=== PATIENT | female | born 1945 | race Caucasian/White ===

== ENCOUNTER → 2017-09-17 | Outpatient (CLI) | payer OTHER, MEDICARE ==
[~2017-09-17] MED LIST: CITALOPRAM HBR20 MG PO; CYMBALTA30 MG PO; LEVOTHYROXINE25 MCG PO; OMEPRAZOLE40 MG PO; SIMVASTATIN20 MG PO; ULTRAM 50MG50 MG PO
--- NOTE | 2017-09-18 18:04 | Diagnostic Imaging Report ---
History: Shooting pain both legs . Comparison studies: None Technique: Sagittal and axial T2 , sagittal T1 and IR, axial spin density oblique. Intravenous contrast: None Findings: Alignment: Grade I anterolisthesis of L4-5 . No scoliosis . Soft tissues: No T2 hyperintense inflammatory changes . Paraspinal muscles: No signal abnormalities. Well-preserved. No atrophy . Lower thoracic cord: Normal in signal and morphology. The tip of the conus is at L1 . Cauda equina: No masses. No arachnoiditis. Vertebrae: Normal in height and signal intensity. No compression fractures, infection or neoplasm. Degenerative changes: Mild disc degeneration with loss of T2 signal from L4-S1. L1-L2: None. L2-L3: None. L3-L4: None. L4-L5: Diffuse disc bulge, severe facet hypertrophy and ligamentum flavum thickening results in moderate canal stenosis, moderate right and mild left foraminal narrowing . L5-S1: Diffuse disc bulge, moderate facet hypertrophy and ligamentum flavum thickening results in no canal stenosis or significant foraminal narrowing . IMPRESSION: 1. Moderate canal stenosis and moderate right foraminal narrowing at L4-5 secondary to severe facet hypertrophy, ligamentum flavum thickening, diffuse disc bulge and mild grade I anterolisthesis. Signed by: DR Rob June M.D. on 09/19/2017 11:30 AM
== END ==
LOC: MRI 08:42
PROVIDERS: ATTEND Specialist
DX: M47.816 Spondylosis without myelopathy or radiculopathy, lumbar region (principal); M43.16 Spondylolisthesis, lumbar region
CPT/HCPCS: 72148

== ENCOUNTER → 2018-04-24 | Outpatient (CLI) | payer OTHER, MEDICARE ==
--- NOTE | 2018-04-24 17:14 | Diagnostic Imaging Report ---
Examination: MRI BRAIN WITHOUT CONTRAST History: Anisocoria. Headaches. Nausea. Dizziness. Comparison studies: None Technique: Sagittal T2; axial DWI, FLAIR, GRE or SWI, T1, Coronal FLAIR. Intravenous contrast: None Findings: Scalp: No abnormal signal. No masses. Bone marrow: Normal in signal intensity. Brain volume: Adequate for age. No volume loss. Ventricles: Normal in size and configuration. No hydrocephalus. Extra-axial spaces: No abnormalities. Parenchyma: There are scattered punctate and patchy areas of T2/FLAIR hyperintensity in the periventricular and subcortical white matter, nonspecific. No masses, hemorrhage, or acute vascular insults. Suprasellar and sellar region: No abnormalities. Craniocervical junction: No abnormalities. The foramen magnum is patent. No Chiari malformations. Vessels: Normal flow-voids in the arteries and sinuses. Additional findings:Bilateral slitlike orbital lens. IMPRESSION: 1. No acute intracranial abnormalities. 2. Mild chronic microvascular ischemic change. Signed by: Dr. Osiris Mcleod M.D. on 04/24/2018 5:11 PM
== END ==
LOC: MRI 15:05
PROVIDERS: ATTEND Family Medicine
DX: H57.02 Anisocoria (principal); R51 Headache
CPT/HCPCS: 70551

== ENCOUNTER 2018-10-26 12:34 | Observation (INO) | payer MEDICARE ==
[~2018-10-26] VITALS: Ht 152.4 cm; Wt 69.0 kg
--- OUTSIDE RECORDS SUMMARY | 2018-10-26 12:38 | XMS REPORT ---
Author Author [facility] Address Unknown Phone Unavailable Care Team Providers Care Process Safety Engineer Name Role Phone ALBERT CALVO Unavailable Unavailable LUIS MIGUEL RUSS Unavailable Unavailable CHIVO ALVAREZ Unavailable Unavailable Problems This patient has no known problems. Allergies, Adverse Reactions, Alerts This patient has no known allergies or adverse reactions. Medications This patient has no known medications. Results Test Description Test Time Test Comments Text Results Atomic Results Result Comments MRI BRAIN WO 2018-04-24 17:09:00 [place] [address] Patient Name: FRANCISCO IVERSON MR #: [id number] : 1945 Age/Sex: 72/F Req #: [id number] Adm Physician: Ordered by: ALBERT CALVO MD Report #: [id number] Location: MRI Room/Bed: Procedure: [id number] MRI/MRI BRAIN WO Exam Date: Exam Time: REPORT STATUS: Signed Examination: MRI BRAIN WITHOUT CONTRAST History: Anisocoria. Headaches. Nausea. Dizziness. Comparison studies: None Technique: Sagittal T2; axial DWI, FLAIR, GRE or SWI, T1, Coronal FLAIR. Intravenous contrast: None Findings: Scalp: No abnormal signal. No masses. Bone marrow: Normal in signal intensity. Brain volume: Adequate for age. No volume loss. Ventricles: Normal in size and configuration. No hydrocephalus. Extra-axial spaces: No abnormalities. Parenchyma: There are scattered punctate and patchy areas of T2/FLAIR hyperintensity in the periventricular and subcortical white matter, nonspecific. No masses, hemorrhage, or acute vascular insults. Suprasellar and sellar region: No abnormalities. Craniocervical junction: No abnormalities. The foramen magnum is patent. No Chiari malformations. Vessels: Normal flow-voids in the arteries and sinuses. Additional findings:Bilateral slitlike orbital lens. IMPRESSION: 1. No acute intracranial abnormalities. 2. Mild chronic microvascular ischemic change. Signed by: Dr. Osiris Mcleod M.D. on 04/24/2018 5:11 PM Dictated By: OSIRIS TOMPKINS MD 10 Transcribed By: JOSE on 04/24/181710 COPY TO: ALBERT CALVO MD MRI SPINE LUMBAR WO [place] [address] Patient Name: FRANCISCO IVERSON MR #: [id number] : 1945 Age/Sex: 71/F Req #: [id number] Adm Physician: Ordered by: LUIS MIGUEL RUSS MD Report #: [id number] Location: MRI Room/Bed: Procedure: [id number] MRI/MRI SPINE LUMBAR WO Exam Date: 09/17/17 Exam Time: 0935 REPORT STATUS: Signed History: Shooting pain both legs . Comparison studies: None Technique: Sagittal and axial T2 , sagittal T1 and IR, axial spin density oblique. Intravenous contrast: None Findings: Alignment: Grade I anterolisthesis of L4-5 . No scoliosis . Soft tissues: No T2 hyperintense inflammatory changes . Paraspinal muscles: No signal abnormalities. Well- preserved. No atrophy . Lower thoracic cord: Normal in signal and morphology. The tip of the conus is at L1 . Cauda equina: No masses. No arachnoiditis. Vertebrae: Normal in height and signal intensity. No compression fractures, infection or neoplasm. Degenerative changes: Mild disc degeneration with loss of T2 signal from L4-S1. L1-L2: None. L2-L3: None. L3-L4: None. L4-L5: Diffuse disc bulge, severe facet hy pertrophy and ligamentum flavum thickening results in moderate canal stenosis, moderate right and mild left foraminal narrowing . L5-S1: Diffuse disc bulge, moderate facet hypertrophy and ligamentum flavum thickening results in no canal stenosis or significant foraminal narrowing . IMPRESSION: 1. Moderate canal stenosis and moderate right foraminal narrowing at L4-5 second ruthy to severe facet hypertrophy, ligamentum flavum thickening, diffuse disc bulge and mild grade I anterolisthesis. Signed by: DR Rob June M.D. on 09/19/2017 11:30 AM Dictated By: ROB JACOB MD 1130 Transcribed By: JOSE on 09/19/17 1130 COPY TO: LUIS MIGUEL RUSS MD CHEST 2 VIEWS [place] [address] Patient Name: FRANCISCO IVERSON MR #: [id number] : 1945 Age/Sex: 71/F Req #: [id number] Adm Physician: Ordered by: CHIVO ALVAREZ MD Report #: [id number] Location: OR Room/Bed: Procedure: [id number] DX/CHEST 2 VIEWS Exam Date: 09/01/17 Exam Time: 1535 REPORT STATUS: Signed PROCEDURE: Frontal and lateral views of the chest. COMPARISON: 02/26/13 INDICATIONS: PREOPERATIVE CHEST XRAY FOR BLADDER SURGERY FINDINGS: Lines/tubes: None. Lungs: The lungs are well inflated and clear. There is no evidence of pneumonia or pulmonary edema. Pleura: There is no pleural effusion or pneumothorax. Heart and mediastinum: The heart and the mediastinum are normal. Bones: No acute bony abnormality. Degenerative changes of thoracic spine, increased from prior exam. Lower cervical spine fusion hardware is visualized. IMPRESSION: 1. No acute cardiopulmonary disease. Dictated by: Collin Bender M.D. on 04/01/2017 at 16:10 Electronically approved by: Collin Bender M.D. on 04/01/2017 at 16:10 Dictated By: COLLIN BENDER MD Elect ronically Signed By: COLLIN BENDER MD on 04/01/17 1610 Transcribed By: YARA on 04/01/17 1610 COPY TO: CHIVO ALVAREZ MD
--- NOTE | 2018-10-26 13:08 | NUR ---
Anton saenz in [facility] - 10/26/18 at 1311 by NISREEN PT TO ROOM 6 FROM U/S.
--- NOTE | 2018-10-26 13:25 | NUR ---
RADIOLOGY AT BEDSIDE FOR CXR AT THIS TIME.
[2018-10-26 13:53] LABS: COLOR,URINE YELLOW (YELLOW)
[2018-10-26 13:54] LABS: BASOPHILS % 1.3 % (0.0-1.0); EOSINOPHILS % 7.8 % (0.0-6.0); HEMATOCRIT 39.9 % (34.2-44.1); HEMOGLOBIN 13.5 g/dL (12.0-16.0); LYMPHOCYTES # (AUTO) 2.7 (1.0-3.2); LYMPHOCYTES % 35.8 % (18.0-39.1); MEAN CORPUSCULAR HEMOGLOBIN 31.8 pg (28-32); MEAN CORPUSCULAR HGB CONC 33.8 g/dL (31-35); MEAN CORPUSCULAR VOLUME 93.9 fL (81-99); MONOCYTES % 8.7 % (4.4-11.3); NEUTROPHILS # (AUTO) 3.4 (2.1-6.9); NEUTROPHILS % 46.3 % (38.7-80.0); PLATELET COUNT 295 x10e3/uL (140-360); RED BLOOD COUNT 4.25 x10e6/uL (3.6-5.1); RED CELL DISTRIBUTION WIDTH 12.6 % (11.7-14.4)
[2018-10-26 13:54] LABS: BILIRUBIN,URINE NEGATIVE (NEGATIVE); CLARITY,URINE SL CLOUDY (CLEAR); KETONES,URINE NEGATIVE (NEGATIVE); LEUKOCYTE ESTERASE ,URINE NEGATIVE (NEGATIVE); NITRITE,URINE NEGATIVE (NEGATIVE); PROTEIN,URINE DIPSTICK NEGATIVE (NEGATIVE); URINE UROBILINOGEN 0.2 mg/dL (0.2 - 1)
[2018-10-26 13:55] LABS: BASOPHILS # (AUTO) 0.1 (0.0-0.1); EOSINOPHILS # (AUTO) 0.6 (0.0-0.4); MONOCYTES # (AUTO) 0.7 (0.2-0.8)
[2018-10-26 13:58] LABS: AMORPHOUS SEDIMENT,URINE MODERATE (FEW); BACTERIA,URINE MANY /HPF; EPITHELIAL CELLS,URINE MODERATE /LPF; MUCUS,URINE FEW (RARE)
[2018-10-26 14:02] LABS: INR 0.77; PROTHROMBIN TIME 11.2 seconds (11.9-14.5)
[2018-10-26 14:03] LABS: PARTIAL THROMBOPLASTIN TIME 34.2 seconds (23.8-35.5)
[2018-10-26 14:10] LABS: ALANINE AMINOTRANSFERASE 26 IU/L (0-55); ALBUMIN 4.2 g/dL (3.5-5.0); ALBUMIN/GLOBULIN RATIO 1.1 (0.8-2.0); ALKALINE PHOSPHATASE 69 IU/L (40-150); ANION GAP 15.2 mmol/L (8-16); BLOOD UREA NITROGEN 11 mg/dL (7-26); BUN/CREATININE RATIO 15 (6-25); CALCIUM 9.7 mg/dL (8.4-10.2); CARBON DIOXIDE 24 mmol/L (22-29); CHLORIDE 102 mmol/L (98-107); CREATINE KINASE 108 IU/L (29-168); CREATININE, SERUM 0.73 mg/dL (0.57-1.11); EST GLOMERULAR FILTRATION RATE > 60 ML/MIN (60-); GLUCOSE 99 mg/dL (74-118); POTASSIUM 4.2 mmol/L (3.5-5.1); SODIUM 137 mmol/L (136-145)
--- NOTE | 2018-10-26 14:33 | Diagnostic Imaging Report ---
EXAMINATION: CHEST SINGLE (PORTABLE) INDICATION: Chest pain. ^ERMD ORDER ^[id number] ^1310 ^Y COMPARISON: None FINDINGS: TUBES and LINES: None. LUNGS: Lungs are well inflated. Mild chronic appearing changes in the lungs. There is no evidence of pneumonia or pulmonary edema. PLEURA: No pleural effusion or pneumothorax. HEART AND MEDIASTINUM: The cardiomediastinal silhouette is unremarkable. BONES AND SOFT TISSUES: No acute osseous lesion. Soft tissues are unremarkable. UPPER ABDOMEN: No free air under the diaphragm. IMPRESSION: No acute thoracic abnormality. Signed by: Dr. Christopher Messer M.D. on 10/26/2018 2:30 PM
[2018-10-26] MEDS ORDERED: SODIUM CHLORIDE FLUSH 10 ML SYR INJ PRN (16:30)
[2018-10-26] MEDS: FAMOTIDINE 20 MG TAB PO SCH (16:40)
[2018-10-26 19:33] VITALS: BP 133/63
[2018-10-26 19:45] VITALS: BP 133/63
[2018-10-26 20:00] VITALS: BP 133/63
[2018-10-27] VITALS (14 sets, daily range): BP systolic 115–155; BP diastolic 53–85
[2018-10-27 01:53] LABS: CREATINE KINASE MB 0.6 ng/mL (0-5.0)
[2018-10-27] MEDS: FAMOTIDINE 20 MG TAB PO SCH ×2 (05:02→17:22)
[2018-10-27] MEDS: MORPHINE SULFATE INJ 4 MG/ML INJ 1ML IV PRN ×2 (05:03→21:00)
[2018-10-27 06:19] LABS: BASOPHILS # (AUTO) 0.1 (0.0-0.1); BASOPHILS % 1.3 % (0.0-1.0); EOSINOPHILS # (AUTO) 0.9 (0.0-0.4); EOSINOPHILS % 12.7 % (0.0-6.0); HEMATOCRIT 37.3 % (34.2-44.1); HEMOGLOBIN 12.3 g/dL (12.0-16.0); LYMPHOCYTES # (AUTO) 3.3 (1.0-3.2); LYMPHOCYTES % 47.6 % (18.0-39.1); MEAN CORPUSCULAR HEMOGLOBIN 31.3 pg (28-32); MEAN CORPUSCULAR VOLUME 94.9 fL (81-99); MONOCYTES # (AUTO) 0.8 (0.2-0.8); MONOCYTES % 11.1 % (4.4-11.3); NEUTROPHILS # (AUTO) 1.9 (2.1-6.9); NEUTROPHILS % 27.2 % (38.7-80.0); PLATELET COUNT 257 x10e3/uL (140-360); RED BLOOD COUNT 3.93 x10e6/uL (3.6-5.1); RED CELL DISTRIBUTION WIDTH 12.3 % (11.7-14.4)
--- NOTE | 2018-10-27 06:23 | Diagnostic Imaging Report ---
EXAMINATION: CHEST SINGLE (PORTABLE) INDICATION: Chest pain COMPARISON: 10/26/2018 FINDINGS: AP view TUBES and LINES: None. LUNGS: Lungs are well inflated. Lungs are clear. There is no evidence of pneumonia or pulmonary edema. PLEURA: No pleural effusion or pneumothorax. HEART AND MEDIASTINUM: The cardiomediastinal silhouette is unremarkable. BONES AND SOFT TISSUES: No acute osseous lesion. Lower cervical fusion hardware. Soft tissues are unremarkable. UPPER ABDOMEN: No free air under the diaphragm. IMPRESSION: No acute thoracic abnormality. Signed by: DR. Abbe Merritt MD on 10/27/2018 6:20 AM
[2018-10-27 06:48] LABS: ALANINE AMINOTRANSFERASE 22 IU/L (0-55); ALBUMIN 3.5 g/dL (3.5-5.0); ALBUMIN/GLOBULIN RATIO 1.1 (0.8-2.0); ALKALINE PHOSPHATASE 62 IU/L (40-150); ANION GAP 10.8 mmol/L (8-16); BLOOD UREA NITROGEN 11 mg/dL (7-26); BUN/CREATININE RATIO 15 (6-25); CALCIUM 9.3 mg/dL (8.4-10.2); CARBON DIOXIDE 28 mmol/L (22-29); CHLORIDE 105 mmol/L (98-107); CHOL/HDL RATIO 3.9 (3.0-3.6); CHOLESTEROL 242 MD/DL (0-199); CREATININE, SERUM 0.74 mg/dL (0.57-1.11); EST GLOMERULAR FILTRATION RATE > 60 ML/MIN (60-); GLUCOSE 114 mg/dL (74-118); HDL CHOLESTEROL 62 MG/DL (40-60); LDL CHOLESTEROL 152 MG/DL (60-130); POTASSIUM 3.8 mmol/L (3.5-5.1); SODIUM 140 mmol/L (136-145); TRIGLYCERIDES 138 MG/DL (0-149)
[2018-10-27] MEDS: ASPIRIN 81 MG ENTERIC COATED PO SCH (09:00)
--- NOTE | 2018-10-27 09:06 | NUR ---
MD Becky RANGEL INTO SEE PT, DISCUSSED POC
--- NOTE | 2018-10-27 09:34 | NUR ---
ECHO IN PROGRESS
[2018-10-27 09:55] LABS: CREATINE KINASE MB 0.5 ng/mL (0-5.0)
[2018-10-27] MEDS ORDERED: CLOPIDOGREL BISULFATE 75 MG TAB PO ONE (10:15)
[2018-10-27] MEDS ORDERED: SODIUM CHLORIDE 0.9% 1000ML 1,000 ML IV SCH (10:15)
[2018-10-27] MEDS ORDERED: HEPARIN SOD (PORCINE) 1000 UNIT/ML 30ML ONE (10:29)
[2018-10-27] MEDS ORDERED: MIDAZOLAM HCL 2 MG/2 ML VIAL ONE (10:29)
[2018-10-27] MEDS ORDERED: LIDOCAINE HCL 2% LOCAL 20 ML VIAL ONE (10:29)
[2018-10-27] MEDS ORDERED: HEPARIN SOD/SOD CHLORIDE 2,000 ML ONE (10:29)
[2018-10-27] MEDS ORDERED: FENTANYL CITRATE/PF 100MCG/2 ML INJ ONE (10:29)
[2018-10-27] MEDS ORDERED: SODIUM CHLORIDE 0.9% 1000ML 1,000 ML ONE (10:30)
[2018-10-27] MEDS ORDERED: IOPAMIDOL 370 MG/ML 200 ML INFUS..BTL INJ ONE ×2 (10:30→10:54)
[2018-10-27] MEDS ORDERED: NITROGLYCERIN/D5W 200 MCG/ML 250 ML ONE (10:30)
--- NOTE | 2018-10-27 10:38 | NUR ---
WITH STAND BY ASSIST, PT OOB TO BR, VOIDING WITHOUT DIFFICULTY, LUIS MIGUEL SCRAP IRON LOADER WITH MD EDWARDS INTO SEE PT, DISCUSSED POC, ORDERS NOTED, CONSENT COMPLETED, PT C/O NAUSEA, WEAK, HOT, MD DIAMOND INTO SEE PT, DISCUSSED POC, PT TELEPHONED FAMILY TO MAKE AWARE, PT WHEELED OFF UNIT VIA STRETCHER FOR HEART CATH
[2018-10-27] MEDS ORDERED: METOCLOPRAMIDE HCL 10 MG/2ML VIAL ONE (10:43)
[2018-10-27] MEDS ORDERED: ATROPINE SULFATE 0.1 MG/ML 10ML SYR ONE (11:23)
[2018-10-27] MEDS: SODIUM CHLORIDE 0.9% 1000ML 1,000 ML IV SCH ×2 (11:44→21:44)
[2018-10-27] MEDS ORDERED: ONDANSETRON HCL INJ 2MG/ML 2ML 2 MG/ML VIAL IV PRN (11:45)
--- NOTE | 2018-10-27 11:50 | NUR ---
BACK IN ROOM VIA BED FROM JIG BUILDER, AWAKENS EASILY, DRESSING TO R GROIN CDI, SURROUNDING TISSUE SOFT, BILAT LE PULSES PALPABLE, PT AND FAMILY EDUCATED REGARDING BEDREST UNTIL 4 PM, VERBALIZED UNDERSTANDING, CALL LIGHT WITHIN REACH
--- NOTE | 2018-10-27 12:45 | Consultation ---
DATE OF CONSULTATION: 10/27/2018 REASON FOR CONSULTATION: Chest pain. CHIEF COMPLAINT: Chest pain. HISTORY OF PRESENT ILLNESS: This is a 72-year-old female with history of hyperlipidemia, hypothyroidism, reflux disease, depression, anxiety, frequent UTI, and strong family history of coronary artery disease. The patient presents to [facility] with complaints of chest pain. Cardiology was consulted to evaluate the patient. The patient was seen in the room, reports that she has been having this off and on chest pain for the past several months. Describes the chest pain as retrosternal, radiating to the left shoulder, pressure in nature, [id number] with shortness of breath and nausea, worse with exertion. However, for the past couple of days, has noticed frequency and intensity has increased and also has increased with minimal activities, also was having some chest pain during the interview, which she reported as consistent with repeated chest pain, pressure tightness, shortness of breath, nausea with some diaphoretic. Long discussion regarding treatment options, the patient is requesting definitive treatment. Left heart cath was discussed. The patient is wanting to proceed with her heart catheterization. Risks, benefits, and alternatives were discussed, questions answered. PAST MEDICAL HISTORY: Hyperlipidemia, hypothyroidism, reflux, anxiety, depression, and frequent UTIs. FAMILY HISTORY: Coronary artery disease. PAST SURGICAL HISTORY: , hysterectomy, bilateral knee surgeries, bladder surgery, and bilateral cataract surgeries. 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 She denies any alcohol use or any tobacco use. FAMILY HISTORY: Mother with lung cancer, father decreased with history of lung cancer. Reports one brother with recent coronary artery bypass surgery, also one sister apparently at the age of 54 from myocardial infarction. HOME MEDICATIONS: Cymbalta 30 mg once daily, levothyroxine 25 mcg daily, omeprazole 40 mg daily, simvastatin 20 mg p.o., and tramadol 50 mg as needed. ALLERGIES: TO SULFA AND . REVIEW OF SYSTEMS: GENERAL: Denies any weight changes, any fevers, chills, or night sweats. SKIN: No rashes or sores. HEENT: Positive for nausea. No vomiting. Denies any blurred vision, double vision, any epistaxis, sore throat, hoarseness, or swollen neck. CARDIAC: Positive for chest pain as above. Positive for dyspnea on exertion. Denies any orthopnea or PND. Positive for intermittent lower extremity edema. RESPIRATORY: Positive for shortness of breath. Denies any wheezing, coughing, or any hemoptysis. GI: Reports good appetite. Positive for nausea during chest pain episodes. Denies any vomiting. Denies any hematemesis, any melena, or hematochezia. URINARY: Positive for frequency and urgency. Denies any hematuria. VASCULAR: Positive for intermittent lower extremity edema. MUSCULOSKELETAL: Positive for generalized joint pains, specifically bilateral knee pains. NEUROLOGIC: Denies any numbness, tingling, tremors, paralysis, blackout, or seizures. HEMATOLOGIC: Denies any anemia or bruising. ENDOCRINE: Denies any heat or cold intolerance, any polyuria, polydipsia, or polyphagia. PHYSICAL EXAMINATION: VITAL SIGNS: Temperature 98.0, pulse 74, respiratory rate 18, blood pressure 149/61, and pulse ox 96% on room air. GENERAL: Appears stated age, reliable informant, in some mild distress currently during interview with above chest pain symptoms. SKIN: No rashes or bruises noted. HEENT: Normocephalic. Pupils are equal and reactive. Extraocular movements intact. Oral mucosa pink. NECK: Trachea midline. Positive for JVD. No carotid bruits noted. HEART: Irregular rate and rhythm. Soft systolic murmur heard at right upper sternal border. PMI, fourth fifth intercoastal space. LUNGS: Bilateral breath sounds clear to auscultation. Good airway entry. ABDOMEN: Soft, nontender, and nondistended. No organomegaly noted. MUSCULOSKELETAL: Good muscle strength throughout. Noted bilateral knee scars. VASCULAR: +2 bilateral radial pulses, +1 DP/PT pulses bilaterally, mild lower extremity edema +1. NEUROLOGIC: Cranial nerves II through XII seem intact. LABORATORY DATA: White count 7, hemoglobin 12, hematocrit 37, and platelets 257. Sodium 137, potassium 4.2, chloride 102, BUN 11, creatinine 0.3, troponin 0.01 and 0.002. Total cholesterol 242, LDL 152, HDL . IMAGING: Chest x-ray, no acute abnormalities. EKG showing sinus rhythm with incomplete right bundle-branch block. ASSESSMENT: 1. Unstable angina. 2. Hyperlipidemia. 3. Strong family history of coronary artery disease. 4. Hypothyroidism. 5. Obesity. PLAN: 1. The patient present with typical exertional chest pain, now reports chest pain symptoms have been increasing in frequency and intensity, now reports having chest pain at rest, also reports recently brother had similar symptoms of him, which were noted with severe coronary artery disease and underwent coronary artery bypass surgery. The patient is requesting definitive treatment and left heart cath was discussed at length. The patient wishes to proceed. Questions were answered. Alternative, risks, and benefits were also discussed. The patient wishes to proceed with cardiac cath. We will load the patient with Plavix. 2. Echo has been ordered, will be read by Cardiology attending. 3. Discussed with staff. Keep n.p.o. and consent for left heart catheterization. 4. Further recommendations post cardiac cath. Thank you very much for this consult. Dictated by Thanh Landon NP Seen and evaluated Agree with above note Patient is having repeated severe chest pain and diaphoresi, will be taken urgently to political anthropologist. Load with 600 mg Plavix Kacie Cochran MD DC/MODL /[id number] JOVANY
--- NOTE | 2018-10-27 13:00 | NUR ---
PT REMAINS ON BEDREST, R GROIN DRESSING CDI, SURROUNDING TISSUE SOFT, BILAT LE PULSES PALPABLE, PT DENIES PAIN AT THIS TIME, TOLERATING SIPS OF WATER, CALL LIGHT WITHIN REACH
--- NOTE | 2018-10-27 16:15 | NUR ---
BEDREST OVER PER ADMISSIONS COORDINATOR REPORT, PT OUT OF BED TO BATHROOM, VOIDED WITHOUT DIFFICULTY AT THIS TIME, STANDBY ASSIST BACK TO BED, CALL LIGHT WITHIN REACH, FAMILY AT SIDE
--- NOTE | 2018-10-27 17:30 | NUR ---
PT TOLERATED DINNER, REPORTS "SMALL AMOUNT" OF PAIN, DENIES NEED FOR PAIN MEDICATION AT THIS TIME, RIGHT GROIN DRESSING CDI, SURROUNDING TISSUE SOFT, BILAT LE PULSES PALPABLE, CALL LIGHT WITHIN REACH
--- NOTE | 2018-10-27 18:58 | Operative Report ---
DATE OF PROCEDURE: 10/27/2018 SURGEON: German Cochran MD PROCEDURES PERFORMED: 1. Left heart cardiac catheterization with coronary angiography. 2. Left ventriculography. INDICATION FOR PROCEDURE: A 72-year-old lady, with history of hypercholesteremia, hypothyroidism, obesity, premature family history of coronary artery disease with brother dying in his 50s, who presents to this institution with chest pain symptoms despite medical therapy. The patient has out of controlled hypercholesterolemia with LDL of 152 and due to ongoing chest pain symptoms refractory to medical therapy. The patient was urgently taken to the cardiac catheterization laboratory. DESCRIPTION OF PROCEDURE: After risks, benefits, pros and cons to this procedure were explained, the procedure agreed to proceed. The patient was brought to the cardiac catheterization laboratory, where the right groin was prepped and draped in the usual sterile fashion. A 1% lidocaine solution was used to numb the right groin region and access to the right femoral artery was obtained and a 4-Hungarian femoral sheath was placed. Selective coronary angiography with JL4 and 3DRC diagnostic catheters respectively. Angled pigtail catheter was placed in the ventricle ventricular filling pressures. At the conclusion of the case, the femoral sheath was removed and manual compression was applied successfully achieving hemostasis. COMPLICATIONS: None. ESTIMATED BLOOD LOSS: None. FINDINGS: 1. Left main is angiographically normal. It gives rise to an LAD and circumflex artery. 2. The LAD and its branches are with small luminal irregularities. 3. Left circumflex artery branches are with mild luminal irregularities. There are 2 mid marginal branches that arise from the circumflex artery. 4. RCA is dominant and gives rise to right PDA and right PLV branches. This vessel and its branches are with mild luminal irregularities. 5. Left ventricular ejection fraction is 65% with end-diastolic pressure of 19 mmHg. There is no significant LV to aortic pullback gradient. PLAN/RECOMMENDATIONS: 1. Aggressive risk factor modification and medical therapy. 2. Consider alternative etiologies of her chest pain as her coronary anatomy of just mild disease. German Cochran MD AMJ/MODL /[id number]
--- NOTE | 2018-10-27 19:20 | NUR ---
WALKING ROUNDS PERFORMED, RECEIVED PT LAYING SEMI FOWLERS IN BED, AAOX3, RR EVEN AND NON-LABORED, ON RA. NO S/SX OF DISTRESS NOTED. (R) GROIN DRESSING NOTED TO BE CDI, SOFT TO PALPATION. BILATERAL PULSES NOTED. LEFT PT LAYING SEMI FOWLERS IN BED, BED IN LOW LOCKED POSITION, SIDE RAILS UPX2, CALL LIGHT AND PHONE WITHIN REACH. FAMILY AT BEDSIDE.
[2018-10-28] VITALS: BP 111/51
[2018-10-28 04:00] VITALS: BP 132/64
[2018-10-28] MEDS: FAMOTIDINE 20 MG TAB PO SCH (04:42)
[2018-10-28] MEDS: SODIUM CHLORIDE 0.9% 1000ML 1,000 ML IV SCH (07:44)
[2018-10-28] MEDS: ASPIRIN 81 MG ENTERIC COATED PO SCH (08:35)
[2018-10-28 08:40] VITALS: BP 119/55
[2018-10-28 09:23] VITALS: BP 119/55
--- NOTE | 2018-10-28 10:26 | NUR ---
LUIS MIGUEL LUGGAGE ATTENDANT WITH MD EDWARDS INTO SEE PT, DISCUSSED POC
--- NOTE | 2018-10-28 11:42 | NUR ---
MD Becky RANGEL INTO SEE PT, DISCUSSED DISCHARGE INSTRUCTIONS, PT VERBALIZED UNDERSTANDING
[2018-10-28 12:35] VITALS: BP 147/67
== END 2018-10-28 13:50 | disposition home or self-care (01) ==
LOC: ER 12:34 → ERHOLD 16:38 → MED/SURG 19:34
DX: R07.89 Other chest pain (principal); I25.10 Atherosclerotic heart disease of native coronary artery without angina pectoris; E78.5 Hyperlipidemia, unspecified; K21.9 Gastro-esophageal reflux disease without esophagitis; F41.8 Other specified anxiety disorders; E66.9 Obesity, unspecified; Z68.29 Body mass index [BMI] 29.0-29.9, adult; Z87.440 Personal history of urinary (tract) infections; Z82.49 Family history of ischemic heart disease and other diseases of the circulatory system; Z80.1 Family history of malignant neoplasm of trachea, bronchus and lung
CPT/HCPCS: 36415 ×2; 71045 ×2; 80053 ×2; 80061; 81001; 82550 ×2; 82553 ×2; 84443; 84484 ×2; 85025 ×2; 85610; 85730; 93005; 93306; 93458; 99284; G0378 ×3; J1644; J2001; J2250; J2270; J2405; J2765; J7030 ×2; Q9967; C1766